=== PATIENT | female | born 1960 | race Caucasian/White ===

== ENCOUNTER 2016-11-29 12:59 | Day surgery (SDC) | payer OTHER ==
[~2016-11-29] VITALS: Ht 162.6 cm; Wt 57.0 kg
[~2016-11-29 12:59] MED LIST: Lactated Ringer's 1,000 ML IV ONE; OXYC1TAB24 PO
[2016-11-29] MEDS ORDERED: Propofol 10,000 mCg/mL 20 mL Inj ONE (13:00)
[2016-11-29] MEDS ORDERED: fentaNYL-PF 50 mCg/mL 2 mL Inj ONE (13:00)
[2016-11-29 13:12] VITALS: BP 124/77; PULSE 91; RESP 16; O2SAT 96
--- NOTE | 2016-11-29 13:32 | PCM.HPANE ---
Patient Data Surgeon Admitting Provider: Attending Provider:Russel Mason MD Primary Care Physician:Marga Lopez PA-C Other Provider:Yolie Gallagher Anesthesia Reason for Visit Abnormal Findings On Mri Ht/WT & BMI Height (Feet): 5 Height (Inches): 4 Weight (Kilograms): 57 Body Mass Index 21.00 Allergies Coded Allergies: Sulfa (Sulfonamide Antibiotics) (Verified Allergy, Intermediate, Nausea, ) Past Anesthesia History Anesthesia History: Positive for:: Abnormal Airway (HAD TROUBLE INTUBATING FOR GALLBLADDER SURGERY), Denies:: Anesthesia Reactions, Difficult Intubation, Fam Anesthesia Reaction , Fam Malignant Hypertherm, Malignant Hyperthermia Diabetes History Hx Diabetes?: No MRSA MRSA: No Medications Home Meds Incl Beta Yari: No Reported Medications oxyCODONE-Acetaminophen 5-325 mg 1 Each Tablet1 Tab PO Q4H PRN For Pain Ref 0 08/14/16 History History of ENT Problems?: No HEENT History: Positive for:: Abnormal Airway (HAD TROUBLE INTUBATING FOR GALLBLADDER SURGERY) Sinus Problem (hx of sinusitis) Denies:: Difficult Intubation Dysphagia Hearing Problem Hx of Heart Problems?: No Cardiovascular History: Denies:: AICD Atrial Fibrillation Chest Pain Congestive Heart Failure Hypertension Pacemaker Valvular Heart Disease Hx of Respiratory Problem?: No Respiratory History: Denies:: Asthma COPD Emphysema Oxygen Administration Tuberculosis Use of C-PAP Machine Hx Neurologic Problems?: No Neurological History: Denies:: Alzheimer's Disease CVA Headaches Multiple Sclerosis Parkinson's Disease Seizures Hx of GI Problems?: Yes Gastrointestinal History: Positive for:: Gall Bladder Disease Gastroesphageal Reflux Liver Disease (? LFT'S HIGH) Denies:: Cirrhosis Diverticulitis Hiatal Hernia Rectal Bleeding Hx of Problems?: No Female Hx: Denies:: Currently Problems with Breasts? Hx Musculoskeletal Problems?: No Musculoskeletal History: Denies:: Fibromyalgia Joint Replacement Hx of Psycho/Social Problems?: No Psycho Social History: Denies:: Anxiety Hx Depression Hx Surgeries?: Yes (COLOECTOMY,APPY, GALLBLADDER) Hx Any Other Health Problems?: Yes Other History: Denies:: Cancer Thyroid Disease Hx Diabetes: No Hx Alcohol Use: NoHx Substance Use: No Smoking Status: Unknown if Ever Smoker Have You Smoked inLast 12 mo: No Stop/Bang Treated for Sleep Apnea?: No Do You Have a CPAP Machine?: No S-Snoring: Do You Snore Loudly: Yes T-Tired: feel tired, fatigued: Yes O-Obsered: Observed not breath: No P-Blood Pressure: treated: No B- Body Mass Index > 35 kg/m2: No A- Age over 50: Yes N- Neck Large Circumference: No G- Gender Male: No JAHAIRA Total Score: 3 Risk Assessment Category Category 1A: Patient has history of documented sleep apnea, and HAS NOT received any narcotic, sedative or anesthesia administration during this stay. Category 1B: Patient has history of documented sleep apnea, and HAS received any narcotic , sedative or anesthesia administration during this stay Category 2: Patient has SUSPECTED Obstructive Sleep Apnea, and HAS received any narcotic , sedative or anesthesia administration during this stay. Category 3: Patient has SUSPECTED Obstructive Sleep Apnea and HAS NOT received narcotic, sedative or anesthesia administration during this stay. Category 4: Outpatient in Procedural Areas with known sleep apnea or who screen positive for High Risk via the STOP/BANG questionnaire. Exam Exam Vital Signs Vital Signs Date Time Temp Pulse Resp B/P Pulse Ox O2 Delivery O2 Flow Rate FiO2 11/29/16 13:12 36.8 91 16 124/77 96 Room Air General Appearance: Alert, Oriented X3, Cooperative HEENT/AIRWAY: MP 2 (TMD = 2.5 FB, small mouth opening, apparent recessed JAW), MP 4, Neck Movement, Mouth Opening (Small) Lungs: Clear to Auscultation Heart: Exam Unremarkable Plan Impression Patient chart reviewed, patient interviewed and anesthestic plan with risks, benefits, and alternatives discussed, and informed consent obtained. NPO Status: 1320 WATER WITH MEDS ASA Physical Status: ASA2 Mod Systemic Disease Anesthetic Support Modalities: Briggs Scope Anesthetic Plan: GA Bene/Risks/Altern/Consents: Yes HP Complete Prior to Induction: Yes (HX difficulat intubation. HX EZ glide Scope Intubation) Arik Segura MD Nov 29, 2016 13:32
[2016-11-29] MEDS ORDERED: Lactated Ringer's 1,000 ML IV ONE (13:38)
[2016-11-29] MEDS ORDERED: Lactated Ringer's 1,000 ML IV SCH (14:02)
[2016-11-29] MEDS ORDERED: MetoCLOpramide 5 mg/mL 2 mL Inj IVPUSH PRN (14:05)
[2016-11-29] MEDS ORDERED: Ondansetron 2 mg/mL 2 mL Inj IVPUSH PRN (14:05)
[2016-11-29 14:28] VITALS: BP 113/67; PULSE 82; RESP 16; O2SAT 100
--- NOTE | 2016-11-29 14:38 | PCM.ANEP1 ---
Post Anesthesia Phase 1 PACU Phase 1 Assessment Vital Signs Vital Signs Date Time Temp Pulse Resp B/P Pulse Ox O2 Delivery O2 Flow Rate FiO2 11/29/16 13:12 36.8 91 16 124/77 96 Room Air Anesthetic Administered: GA Level of Alertness: Awake, talking GUILLERMO's with Equal Strength: Yes Pain: No Nausea or Vomiting: No Oxygen Delivery: Room Air Lungs: Normal Air Movement Arik Segura MD Nov 29, 2016 14:38
--- NOTE | 2016-11-29 14:39 | PCM.ANEP2 ---
Post Anesthesia Evaluation ASA/CMS Post Anesthesia VS in Patient's Normal Range?: Yes Resp Stable; Airway Patent?: Yes CV Function & Hydration Stable: Yes Mental Status Recovered?: Yes Pain control Satisfactory?: Yes N/V Control Satisfactory?: Yes Arik Segura MD Nov 29, 2016 14:39
[2016-11-29 14:41] VITALS: BP 113/74; PULSE 82; RESP 14; O2SAT 100
--- NOTE | 2016-11-29 14:47 | ENDO ---
[address] [address] ENDOSCOPY PROCEDURE PATIENT: JAN WATSON : 1960 MR#: [id number] ADMIT: 11/29/2016 JOB ID: [id number] DATE: 11/29/2016 PROCEDURE: Esophagogastroduodenoscopy and endoscopic ultrasound (EUS). INDICATION: Acute recurrent pancreatitis and abdominal pain. Recent cross-sectional imaging of the abdomen revealed shouldering in the distal CBD and, therefore, the patient was scheduled for EUS today. INSTRUMENTS USED: A GIF H 190 as well as a GF ECT 180 linear echo endoscope. PROCEDURE DETAILS: After informed consent was obtained, the patient was brought into the GI suite, where she was placed on oxygen via nasal cannula and monitored with continuous pulse oximeter, telemetry and blood pressure monitoring. A time-out was performed. Then, she was placed in the left lateral decubitus position and medications were administered for sedation. A bite block was placed. The standard EGD scope was inserted through the bite block and advanced under direct visualization to the second portion of the duodenum without difficulty. FINDINGS: 1. Normal-appearing ampulla. Bile was seen flowing from the ampulla. The remainder of the duodenal examination was also otherwise normal. 2. Normal-appearing pylorus, antrum and gastric body. Retroflexed views in the gastric body reveal normal-appearing cardia and fundus. 3. Normal appearing esophagus. IMPRESSION: 1. Normal esophagogastroduodenoscopy examination to second portion of the duodenum. 2. I attempted to pass the linear echo endoscope through the bite block. However, resistance was met as the scope was inserted into the posterior oropharynx, and despite multiple position changes, which includes flexion and extension of the head, I was unable to advance the scope past the oropharynx. At this point, the procedure was aborted. IMPRESSION: Failed EUS examination. RECOMMENDATIONS: Refer to [place] for EUS. COMPLICATIONS: None. ESTIMATED BLOOD LOSS: 0. MTDD
[2016-11-29 14:51] VITALS: BP 122/79; PULSE 82; RESP 14; O2SAT 100
== END 2016-11-29 23:59 | disposition home or self-care (01) ==
LOC: END 12:59
PROVIDERS: ATTEND Internal Medicine Gastroenterology
DX: K21.9 Gastro-esophageal reflux disease without esophagitis (principal); R93.5 Abnormal findings on diagnostic imaging of other abdominal regions, including retroperitoneum; Z79.899 Other long term (current) drug therapy
CPT/HCPCS: 43235; J2250; J7120